=== PATIENT | female | born 1955 | race Caucasian/White ===

== ENCOUNTER 2022-03-26 08:20 | Inpatient (IN) | payer MEDICARE, BC ==
[~2022-03-26] VITALS: Ht 165.1 cm; Wt 104.3 kg
[2022-03-26] MEDS ORDERED: FISH OIL 1,0001 EAC2 PO (08:49)
[2022-03-26] MEDS ORDERED: MELOXICAM15 MG PO (08:50)
[2022-03-26] MEDS ORDERED: FERROUS SULFAT325 M2 PO (08:51)
[2022-03-26] MEDS ORDERED: FLUOXETINE HCL20 MG PO (08:51)
[2022-03-26] MEDS ORDERED: LO-DOSE ASPIRIN81 MG PO (08:52)
[2022-03-26] MEDS ORDERED: FAMOTIDINE40 MG PO (08:52)
[2022-03-26] MEDS ORDERED: VITAMIN D31250 MC1 PO (16:45)
[2022-03-26] MEDS ORDERED: AZO CRANBERRY250 MG PO (16:46)
[2022-03-26] MEDS ORDERED: CHROMIUM PICO200 MC1 PO (16:48)
[2022-03-26] MEDS ORDERED: METHYL CPG PO (16:48)
--- NOTE | 2022-03-26 20:25 | EKG ---
[facility] [address] [facility] [place], [place] [address] Signed Sinus bradycardia with sinus arrhythmia with 1st degree AV block Incomplete right bundle branch block Possible Anterior infarct , age undetermined Abnormal ECG No previous ECGs available Confirmed by DARA LEE MD ([id number] on 03/26/2022 8:25:29 PM Electronically Signed By: DARA LEE MD 03/26/222024 PATIENT NAME: GI SPRAGUE YARIEL Electrocardiogram DATE OF : 53 PHYSICIAN: DARA LEE MD REPORT #: [id number] REPORT IS CONFIDENTIAL AND NOT TO BE RELEASED WITHOUT AUTHORIZATION
[2022-03-28] MEDS ORDERED: LIPITOR40 MG PO (08:03)
[2022-03-28] MEDS ORDERED: CLOPIDOGREL75 MG PO (08:03)
[2022-03-28] MEDS ORDERED: CEPHALEXIN500 MG PO (08:12)
== END 2022-03-28 10:22 | disposition home or self-care (01) | DRG 65 ==
LOC: ED 08:20 → CCU 14:23 → MS 03-27 14:25
PROVIDERS: ADMIT Internal Medicine; ATTEND Internal Medicine
DX: I63.9 Cerebral infarction, unspecified (principal); N39.0 Urinary tract infection, site not specified; E11.9 Type 2 diabetes mellitus without complications; Z20.822 Contact with and (suspected) exposure to COVID-19; E78.5 Hyperlipidemia, unspecified; R30.0 Dysuria; R20.2 Paresthesia of skin; M19.90 Unspecified osteoarthritis, unspecified site; Z98.890 Other specified postprocedural states; Z79.82 Long term (current) use of aspirin; Z79.899 Other long term (current) drug therapy
CPT/HCPCS: 36415; 70450; 70496; 70498; 70551; 71045; 80048; 80053; 80061; 83036; 83735; 84484; 85025; 85610; 85730; 87502; 93005; 93010; 93306; A9270; C9803; J0696; J1644; J7030; Q9967; U0003